=== PATIENT | female | born 1985 | race American Indian/Alaskan Native ===

== ENCOUNTER 2018-01-12 22:28 | Emergency (ER) | payer SELFPAY ==
[2018-01-12 22:41] VITALS: BP 121/82
--- NOTE | 2018-01-13 02:51 | Emergency Department Report ---
ED ENT HPI - General Chief complaint: Sore Throat Stated complaint: THROAT PAIN Time Seen by Provider: 01/13/18 01:23 Source: patient Mode of arrival: Ambulatory Limitations: No Limitations - History of Present Illness Initial comments: This is a 32 y.o. female that presents with pain with swallowing for 2 weeks. Patient reports sensation of foreign object causing pain with swallowing. She is also feeling a burning sensation in throat that is not associated with food. Intermittent burning on left side of chest. She has taken benadryl and ibuprofen because she thought she was having allergic reaction to something eaten. Denies drooling, hoarseness, difficulty swallowing, fever, and chest pain. MD complaint: sore throat (sensation of foreign object), difficulty swallowing ( pain with swallowing) -: week(s) (2 weeks) Location: throat Severity: mild Severity scale (0 -10): 0 Quality: aching Consistency: intermittent Improves with: none Worsens with: swallowing, eating Associated Symptoms: pain with swallowing. denies: fever, cough, gum swelling, toothache, sore throat, tinnitus, hearing loss, discharge from ear, rhinorrhea - Related Data Previous Rx's Medication Instructions Recorded Last Taken Type RX: Omeprazole 40 mg PO DAILY #30 capsule. 01/13/18 Unknown Rx Allergies Allergy/AdvReac Type Severity Reaction Status Date / Time No Known Allergies Allergy Verified 01/12/18 22:40 ED Dental HPI - General Chief complaint: Sore Throat Stated complaint: THROAT PAIN Time Seen by Provider: 01/13/18 01:23 Source: patient Mode of arrival: Ambulatory Limitations: No Limitations - Related Data Previous Rx's Medication Instructions Recorded Last Taken Type RX: Omeprazole 40 mg PO DAILY #30 capsule. 01/13/18 Unknown Rx Allergies Allergy/AdvReac Type Severity Reaction Status Date / Time No Known Allergies Allergy Verified 01/12/18 22:40 ED Review of Systems ROS: Stated complaint: THROAT PAIN Other details as noted in HPI Constitutional: denies: chills, fever ENT: throat pain (sensation of foreign object in throat with burning). denies: ear pain, dental pain, hearing loss, epistaxis, congestion Respiratory: denies: cough, shortness of breath, wheezing Cardiovascular: denies: chest pain, palpitations, edema, syncope Gastrointestinal: denies: abdominal pain, nausea, vomiting, diarrhea Neurological: denies: headache, weakness, numbness, paresthesias Psychiatric: denies: anxiety, depression ED Past Medical Hx - Past Medical History Previous Medical History?: No - Surgical History Past Surgical History?: No - Social History Smoking Status: Current Every Day Smoker Substance Use Type: None - Medications Home Medications: Home Medications Medication Instructions Recorded Confirmed Last Taken Type RX: Omeprazole 40 mg PO DAILY #30 capsule. 01/13/18 Unknown Rx ED Physical Exam - General Limitations: No Limitations General appearance: alert, in no apparent distress, obese - ENT ENT exam: Present: normal orophraynx, mucous membranes moist - Neck Neck exam: Present: normal inspection, full ROM. Absent: tenderness, lymphadenopathy - Respiratory Respiratory exam: Present: normal lung sounds bilaterally. Absent: respiratory distress, wheezes, rales, rhonchi, stridor, accessory muscle use, decreased breath sounds - Cardiovascular Cardiovascular Exam: Present: regular rate, normal rhythm, normal heart sounds. Absent: systolic murmur, diastolic murmur, rubs, gallop - GI/Abdominal GI/Abdominal exam: Present: soft, normal bowel sounds. Absent: distended, tenderness, guarding, rebound, rigid, organomegaly, mass - Neurological Exam Neurological exam: Present: alert, oriented X3, normal gait - Psychiatric Psychiatric exam: Present: normal affect, normal mood - Skin Skin exam: Present: warm, dry, intact, normal color. Absent: rash ED Course Vital Signs 01/12/18 22:37 Temperature 98.3 F Pulse Rate 74 Respiratory 18 Rate Blood Pressure 121/82 O2 Sat by Pulse 100 Oximetry ED Medical Decision Making - Radiology Data Radiology results: report reviewed CT of throat: No radiodense foreign body identified in the imaged portion of the trachea or esophagus. Consider upper GI fluoroscopy and/or endoscopy as warranted. - Medical Decision Making 32 y.o. female that presents with burning and foreign object sensation to throat. Patient examined by me. No distress noted. Vitals stable. Obtained urine HCG and CT of throat. HCG negative. No radiodense foreign body identified in the imaged portion of the trachea or esophagus. Consider upper GI fluoroscopy and/or endoscopy as warranted. Discussed results with patient. Start trial of omeprazole for GERD. If symptoms improved continue and f/u with PCP for EGD referral. Critical care attestation.: If time is entered above; I have spent that time in minutes in the direct care of this critically ill patient, excluding procedure time. ED Disposition Clinical Impression: GERD (gastroesophageal reflux disease) Qualifiers: Esophagitis presence: with esophagitis Qualified Code(s): K21.0 - Gastro- esophageal reflux disease with esophagitis Disposition: TO HOME OR SELFCARE Is pt being admited?: No Does the pt Need Aspirin: No Condition: Stable Instructions: Gastroesophageal Reflux Disease (ED) Additional Instructions: Weight reduction and elevation of the head of the bed may decrease symptoms. Avoid foods such as chocolate, caffeine, alcohol, acidic and/or spicy foods. Take omeprazole 40 mg by mouth daily to see if symptoms improve. Follow up with primary care provider in 2-3 days. Prescriptions: RX: Omeprazole 40 mg PO DAILY #30 capsule. Referrals: [facility] [Outside] - 3-5 Days [facility] [Outside] - 3-5 Days [facility] [Outside] - 3-5 Days Forms: Work/School Release Form(ED) Time of Disposition: 04:48 Print Language: DANISH
[2018-01-13 03:27] LABS: HCG Qualitative,Urine Negative (Negative)
--- NOTE | 2018-01-13 04:20 | Cat Scan Report ---
FINAL REPORT EXAM: CT NECK WO CON HISTORY: sensation of foreign object, difficulty swallowing TECHNIQUE: CT images are acquired through the neck without contrast. Transaxial , coronal and sagittal reformations are provided. PRIORS: None. FINDINGS: The central airways patent. No tracheal or esophageal radiodense foreign body. Parapharyngeal fat and remaining mucosal spaces of the neck demonstrate an unremarkable noncontrast appearance. Thyroid of normal size. No soft tissue mass or lymphadenopathy is evident. Intact cervical spine. Incomplete evaluation of the lung apices is unremarkable. IMPRESSION: No radiodense foreign body identified in the imaged portion of the trachea or esophagus. Consider upper GI fluoroscopy and/or endoscopy as warranted.
== END 2018-01-13 05:00 | disposition home or self-care (01) ==
LOC: ED 22:28
DX: K21.9 Gastro-esophageal reflux disease without esophagitis (principal); F17.200 Nicotine dependence, unspecified, uncomplicated
CPT/HCPCS: 70490; 81025; 99284